=== PATIENT | male | born 1985 | race Caucasian/White ===

== ENCOUNTER → 2016-11-02 | Outpatient (CLI) | payer OTHER ==
[~2016-11-02] MED LIST: DOCUSATE SODIU250 MG PO; FLOMAX 0.4 MG0.4 MG PO; NORCO 5-325 TA1 EACH PO; NORCO 7.5-3251 EACH PO; PERCOCET 5-3251 EACH PO; PERCOCET 5/325 T1 EA PO; PHENERGAN 12.12.5 M1 PO; PHENERGAN12.5 MG PO; STOOL SOFTENER250 MG PO
== END ==
LOC: RAD 10-16 09:30
DX: S46.011A Strain of muscle(s) and tendon(s) of the rotator cuff of right shoulder, initial encounter (principal); M24.211 Disorder of ligament, right shoulder; S43.021A Posterior subluxation of right humerus, initial encounter
CPT/HCPCS: 73040; 73222; A9577; Q9962